=== PATIENT | female | born 2000 | race African-American/Black ===

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

== ENCOUNTER 2021-05-19 17:47 | Emergency (ER) | payer SELFPAY ==
[~2021-05-19] VITALS: Ht 157.5 cm; Wt 58.6 kg
[~2021-05-19 17:47] MED LIST changes: +CEPH-264 PO; +METR500T PO; +PHEN-318 PO
[2021-05-19 18:50] VITALS: BP 125/62
[2021-05-19] MEDS ORDERED: IV NORMAL SALINE 1000ML BAG 1,000 ML IV ONE (19:30)
[2021-05-19 19:57] LABS: CALCIUM 8.8 mg/dL (8.5-10.1); CREATININE 0.8 mg/dL (0.6-1.0); GFR 108.5; POTASSIUM 3.7 mmol/L (3.5-5.1)
[2021-05-19 20:07] LABS: PREG TEST PT QUAL NEGATIVE (NEG)
[2021-05-19] MEDS ORDERED: IOHEXOL 300 MG/ML 100ML VIAL. IV ONE (20:15)
[2021-05-19] MEDS ORDERED: CONTRAST GIVEN. MC PRN (20:15)
--- NOTE | 2021-05-19 20:37 | RAD ---
Exam: CT pelvis with contrast INDICATION: Left-sided perirectal abscess TECHNIQUE: Sequential axial images through the pelvis obtained following the administration of 75 mL of Isovue 300 IV contrast. Sagittal and coronal reformatted images were reconstructed from the axial data and reviewed. Exposure: One or more of the following in the visualized dose reduction techniques were utilized for this examination: 1. Automated exposure control 2. Adjustment of the MA and/or KV according to patient size 3. Use of iterative of reconstructive technique Comparisons: None FINDINGS: There is a cystic lesion in the adnexa on the left which measures up to 7.2 cm. Bladder is decompressed. Uterus is not enlarged. Visualized portions of the large and small bowel are unremarkable. No discrete perirectal abscess is identified. Pelvic as culture is unremarkable. No enlarged pelvic lymphadenopathy. No suspicious osseous lesions or acute fractures. Soft tissues the visualized lower extremities are u nremarkable. IMPRESSION: 1. No discrete perirectal abscess is identified. Recommend correlation with physical exam. 2. Cystic lesion in the adnexa on the left measuring up to 7.2 cm favored represent cyst within the left ovary, incompletely characterized on CT. Electronically signed by: Rasheed Mendieta MD (05/19/2021 8:35 PM) [facility]
[2021-05-19] MEDS ORDERED: ACYC-12 PO (21:18)
--- NOTE | 2021-05-19 21:18 | ED.ADGEN ---
Past Medical History Past Medical History: No Pertinent History Past Surgical History: No Surgical History Smoking Status: Never Smoker Alcohol Use: None Drug Use: None General Adult EDM: Chief Complaint: OTHER COMPLAINTS HPI: HPI: Patient is a 21 year old AA female who presents emergency department with complaints of pain in her left buttock for the last week. She denies any rectal bleeding, constipation, back pain, dysuria, hematuria, or increased urinary frequency. Patient states she is currently on her menstrual cycle. She denies any abnormal vaginal discharge prior to the onset of her menstrual cycle. Patient denies any numbness, tingling, or radiation of the pain. She states th at the pain is worse with sitting and defecation. She currently rates the pain a 10 out of 10 on the pain scale she denies any alleviating factors the pain is worse with palpation and defecation. Review of Systems: Review of Systems: Complete ROS is negative unless otherwise noted in the HPI. Current Medications: Current Medications Medications (Trade) Dose Ordered Sig/Angie Start Time Stop Time Status Last Admin Dose Admin Info (CONTRAST GIVEN -- Rx MONITORING) 1 each PRN DAILY PRN 05/19/21 20:15 05/19/21 21:22 DC Iohexol (Omnipaque 300 Mg/ml) 75 ml 1X ONCE 05/19/21 20:15 05/19/21 20:16 DC 05/19/21 20:24 75 ML Lidocaine HCl (Viscous Lidocaine) 15 ml 1X ONCE 05/19/21 21:30 05/19/21 21:22 DC 05/19/21 21:04 15 ML Sodium Chloride 1,000 ml @ 1,000 mls/hr 1X ONCE 05/19/21 19:30 05/19/21 20:29 DC 05/19/21 19:50 1,000 MLS/HR Allergies: Allergies: Allergies Coded Allergies Type Severity Reaction Last Updated Verified No Known Drug Allergies 07/05/17 No Physical Exam: PE: See above Constitutional: Well developed, well nourished, no acute distress, non-toxic a ppearance. [] HENT: Normocephalic, atraumatic, bilateral external ears normal, nose normal. [] Eyes: PERRLA, EOMI, conjunctiva normal, no discharge. [] Neck: Normal range of motion, no stridor. 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 [] Extremities: No cyanosis, ROM intact, no edema. [] Neurologic: Alert and oriented X 3, no focal deficits noted. [] Psychologic: Affect normal, judgement normal, mood normal. [] Current Patient Data: Labs: Laboratory Tests Test 05/19/21 19:35 05/19/21 21:00 Sodium Level 140 mmol/L (136-145) Potassium Level 3.7 mmol/L (3.5-5.1) Chloride Level 104 mmol/L (98-107) Carbon Dioxide Level 26 mmol/L (21-32) Anion Gap 10 (6-14) Blood Urea Nitrogen 8 mg/dL (7-20) Creatinine 0.8 mg/dL (0.6-1.0) Estimated GFR (Cockcroft-Gault) 108.5 Glucose Level 97 mg/dL (70-99) Calcium Level 8.8 mg/dL (8.5-10.1) Serum Test, Qualitative Negative (NEG) Herpes Simplex Virus I DNA (PCR) Negative (Negative) Herpes Simplex Virus II DNA (PCR) Positive (Negative) A Laboratory Tests 05/19/21 19:35 Vital Signs: Vital Signs Date Time Temp Pulse Resp B/P (MAP) Pulse Ox O2 Delivery O2 Flow Rate FiO2 05/19/21 18:50 98.1 89 16 125/62 99 Room Air 98.1 EKG: EKG: [] Heart Score: C/O Chest Pain: No Radiology/Procedures: Radiology/Procedures: PROCEDURE: CT PELVIS W/CONTRAST Exam: CT pelvis with contrast INDICATION: Left-sided perirectal abscess TECHNIQUE: Sequential axial images through the pelvis obtained following the administration of 75 mL of Isovue 300 IV contrast. Sagittal and coronal reformatted images were reconstructed from the axial data and reviewed. Exposure: One or more of the following in the visualized dose reduction techniques were utilized for this examination: 1. Automated exposure control 2. Adjustment of the MA and/or KV according to patient size 3. Use of iterative of reconstructive technique Comparisons: None FINDINGS: There is a cystic lesion in the adnexa on the left which measures up to 7.2 cm. Bladder is decompressed. Uterus is not enlarged. Visualized portions of the large and small bowel are unremarkable. No discrete perirectal abscess is identified. Pelvic as culture is unremarkable. No enlarged pelvic lymphadenopathy. No suspicious osseous lesions or acute fractures. Soft tissues the visualized lower extremities are unremarkable. IMPRESSION: 1. No discrete perirectal abscess is identified. Recommend correlation with physical exam. 2. Cystic lesion in the adnexa on the left measuring up to 7.2 cm favored represent cyst within the left ovary, incompletely characterized on CT. Electronically signed by: Rasheed Mendieta MD (05/19/2021 8:35 PM) [facility] [] Course & Med Decision Making: Course & Med Decision Making Pertinent Labs and Imaging studies reviewed. (See chart for details) 1-year-old female presented to the emergency department with complaints of rect al pain for a week. On physical exam there are ulcerations located in the painful portion of the patient's rectum. CT did not reveal an abscess. I advised the patient that she likely has a genital herpes infection. Prescription was written for acyclovir. Wound culture was sent to the lab. I notified the patient that the wound culture result would not be available for at least 24 hours. I encouraged patient to follow-up with her primary care doctor for further evaluation and treatment of rectal pain. Return to the ER if symptoms worsen or fever develop. Patient verbalized an understanding of home care, medications, follow-up, and return to ED instructions and was in agreement with the plan of care. []Patients Care and treatment plan provided by ER Nurse Practitioner. I was available for consult. Patient's chart reviewed. Rinku Disclaimer: Rinku Disclaimer: This electronic medical record was generated, in whole or in part, using a voice recognition dictation system. 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 Recommend that you follow-up with your primary care doctor in the next 1 to 2 days for reevaluation. Return to the ER if symptoms worsen or fever develops. Scripts Acyclovir (ACYCLOVIR) 400 Mg Tablet 1 TAB PO TID, #30 TAB 0 Refills Prov: KRISTA LOPEZ APRN 05/19/21 Problem Qualifiers KRISTA LOPEZ APRN May 19, 2021 21:18 PATTI DEVI DO May 23, 2021 18:25
[2021-05-19] MEDS ORDERED: LIDOCAINE 2% VISCOUS 15 ML SOLUTION. MM ONE (21:30)
[2021-05-23 00:08] LABS: HERPES SIMPLEX TYPE 1 Negative (Negative); HERPES SIMPLEX TYPE 2 Positive (Negative)
== END 2021-05-19 21:22 | disposition home or self-care (01) ==
LOC: ER 17:47
DX: A60.09 Herpesviral infection of other urogenital tract (principal); K62.89 Other specified diseases of anus and rectum
CPT/HCPCS: 36415; 72193; 80048; 84703; 87529; 96360; 99285; J7030; Q9967